=== PATIENT | male | born 1960 | race Caucasian/White ===

== ENCOUNTER 2017-12-29 09:03 | Day surgery (SDC) | payer BC ==
[2017-12-29] MEDS ORDERED: LIDOCAINE 2% MDV (20MG/ML) 20ML VIAL IV ONE (09:04)
[2017-12-29] MEDS ORDERED: PROPOFOL 10 MG/ML VIAL IV ONE (09:04)
--- NOTE | 2017-12-30 10:00 | Operative Note ---
DATE OF SURGERY: 12/29/2017 OPERATION: COLONOSCOPY to the cecum with electrocautery snare polypectomy x2 and cold snare polypectomy x2. INDICATION: Prior history of polyps which turned out to be hyperplastic in type. The patient also had some focal areas of mild colitis noted on previous colonoscopy. He returns at this time for surveillance and the evaluation. He denies any current GI issues. There is no history of diarrhea or rectal bleeding. ANESTHESIA: Intravenous sedation was administered by the department of anesthesiology and included Diprivan titrated to effect. PROCEDURE: Following informed consent from this alert individual including a discussion of the risks and benefits of the procedure and an opportunity for the patient to ask questions, the patient was in the left lateral decubitus position. A digital rectal examination was performed. No abnormalities were noted. Following this, the Olympus [id number] video colonoscope was inserted into the rectum without resistance. The rectal mucosa had a normal appearance with normal folds and distensibility. The colonoscope was advanced up through the colon to the level of the cecum without much difficulty. Throughout the bowel the mucosa appeared normal, the folds were normal, and the bowel was fairly well distensible. The cecum was defined by noting the appendiceal orifice and ileocecal valve. Retroflexion in the cecum was accomplished and failed to demonstrate changes. From the base of the cecum, the colonoscope was then withdrawn. The ascending colon was unremarkable. In the transverse colon, there were 4 polyps noted. They ranged in size from 4-8 mm in diameter. Two larger polyps measuring 7 and 8 mm were removed with electrocautery snare polypectomy. The smaller polyps measuring 4-6 mm were removed with cold snare polypectomy. The polyps were flat and somewhat difficult to see without narrow band imaging. After polypectomy, the colonoscope was further withdrawn. No additional changes were noted until the rectum was reached. Retroflexion in the rectum revealed small internal hemorrhoids. The endoscope was straightened and withdrawn. The colon preparation was good. The patient tolerated the procedure well and was returned to the recovery area in stable condition. IMPRESSION: 1. Four transverse colon polyps removed as described above, the larger polyps measuring 7-8 in size were removed with electrocautery snare and the smaller 4-6 mm polyps were removed with cold snare polypectomy. 2. Small internal hemorrhoids. RECOMMENDATIONS: Further recommendations will be forthcoming pending the results of pathology obtained today. Followup will also be with Dr. Betito Taveras. As always, thank you for allowing me to participate in the care of your patient. CC: DO HAILE Bingham
== END 2017-12-29 11:15 | disposition home or self-care (01) ==
LOC: HOP 09:03
PROVIDERS: ATTEND Internal Medicine Gastroenterology
DX: Z12.11 Encounter for screening for malignant neoplasm of colon (principal); Z86.010 Personal history of colon polyps; Z87.19 Personal history of other diseases of the digestive system; D12.3 Benign neoplasm of transverse colon; K64.8 Other hemorrhoids; E78.00 Pure hypercholesterolemia, unspecified